=== PATIENT | female | born 1995 | race Caucasian/White ===

== ENCOUNTER 2017-03-15 16:30 | Emergency (ER) | payer MEDICAID, OTHER ==
[~2017-03-15] VITALS: Ht 157.5 cm; Wt 111.0 kg
[2017-03-15] MEDS ORDERED: PHENAZOPYRIDINE 200 MG TABLET PO ONE (17:00)
[2017-03-15] MEDS ORDERED: PHENAZOPYRIDINE 200 MG TABLET ONE (17:12)
[2017-03-15 17:23] LABS: CULTURE INDICATED? YES; HCG UR SG > 1.030 (1.003-1.030); MICROSCOPIC INDICATED
[2017-03-15 18:15] VITALS: BP 116/74
== END 2017-03-15 18:17 | disposition home or self-care (01) ==
LOC: ED 18:08
DX: N30.01 Acute cystitis with hematuria (principal)
CPT/HCPCS: 81001; 81025; 87077; 87086; 87186; 99284